=== PATIENT | female | born 1985 | race Caucasian/White ===

== ENCOUNTER 2017-10-27 03:34 | Outpatient (CLI) | END 2017-10-27 06:04 | disposition home or self-care (01) ==

== ENCOUNTER 2017-11-04 16:35 | Outpatient (CLI) | END 2017-11-04 18:33 | disposition home or self-care (01) ==

== ENCOUNTER 2017-12-18 19:56 | Outpatient (CLI) | END 2017-12-19 01:25 | disposition home or self-care (01) ==

== ENCOUNTER 2018-01-04 02:10 | Observation (INO) | END 2018-01-04 18:16 | disposition home or self-care (01) ==

== ENCOUNTER 2018-01-08 10:59 | Inpatient (IN) | END 2018-01-11 16:30 | disposition home or self-care (01) | DRG 766 ==

== ENCOUNTER 2018-01-13 13:53 | Observation (INO) | END 2018-01-15 18:15 | disposition home or self-care (01) ==